=== PATIENT | female | born 1970 | race African-American/Black ===

== ENCOUNTER 2020-01-15 15:01 | Emergency (ER) | payer BC, OTHER ==
[~2020-01-15] VITALS: Ht 165.1 cm; Wt 123.8 kg
[~2020-01-15 15:01] MED LIST: ACCOLATE10 MG PO; ACETAMINOPHEN325 M1 PO; ADVAIR 250-501 EACH INH; ALBUTEROL INHAL17 GM IH; ALBUTEROL2.5 MG/0.1 IH; ALBUTEROL2.5 MG/31 IH; CALCIUM 500 +1 EAC5 PO; CLARITIN10 MG PO; DILANTIN100 MG PO; DUONEB 2.5-0.5 M3 ML IH; DUONEB 2.5-0.5 M3 ML INH; LEVAQUIN 500 M500 M3 PO; MEDROL DOSPAK21 TA1 PO; MEDROLDOSEPACK PO; MUCINEX600 MG PO; NORCO 5-325 TA1 EACH PO; PREDNISONE 10 M10 M1 PO; PREDNISONE 20 M20 M1 PO; PREDNISONE 20 M20 MG PO; PREDNISONE50 MG PO; PRILOSEC40 MG PO; PROAIR HFA8.5 GM IH; PROVENTIL HFA6.7 G1 INH; VENTOLIN HFA 1818 GM INH; XANAX 0.5 MG0.5 MG PO; ZPAK PO; [UNRECOGNIZED DRUG - OTHER] PO
[2020-01-15] MEDS ORDERED: MELOXICAM15 MG PO ×2 (15:11→16:33)
[2020-01-15] MEDS ORDERED: TRAMADOL 50 MG50 MG PO (15:11)
[2020-01-15] MEDS ORDERED: PREDNISONE 20 M20 MG PO (16:33)
[2020-01-15] MEDS ORDERED: TIZANIDINE4 MG/1 TA1 PO (16:33)
[2020-01-15 16:46] LABS: URINE BILIRUBIN NEGATIVE (Negative); URINE BLOOD NEGATIVE (Negative); URINE CLARITY CLEAR; URINE COLOR YELLOW; URINE GLUCOSE-RANDOM* NEGATIVE (Negative); URINE KETONES NEGATIVE (Negative); URINE LEUKOCYTES-REFLEX NEGATIVE (Negative); URINE NITRITE-REFLEX NEGATIVE (Negative); URINE PROTEIN (DIPSTICK) NEGATIVE (Negative); URINE UROBILINOGEN 0.2 E.U./dl (0.2-1.0)
[2020-01-15 17:14] VITALS: BP 142/68
== END 2020-01-15 19:30 | disposition home or self-care (01) ==
LOC: ER 15:01
PROVIDERS: Nurse Practitioner
DX: M54.5 Low back pain (principal); J45.909 Unspecified asthma, uncomplicated; Z90.710 Acquired absence of both cervix and uterus; Z79.899 Other long term (current) drug therapy; Z91.013 Allergy to seafood